=== PATIENT | female | born 1950 | race Two or more races ===

== ENCOUNTER 2018-12-19 16:44 | Emergency (ER) | payer MEDICARE, OTHER ==
[~2018-12-19] VITALS: Ht 147.3 cm; Wt 47.7 kg
[2018-12-19] MEDS ORDERED: HTN MED PO (17:16)
[2018-12-19] MEDS ORDERED: CHOL100018 PO (17:16)
[2018-12-19] MEDS ORDERED: TraMADol HCL 50 MG TABLET PO ONE (18:15)
[2018-12-19 19:50] VITALS: BP 144/82
== END 2018-12-19 20:09 | disposition home or self-care (01) ==
LOC: EMS 16:46
DX: S22.019A Unspecified fracture of first thoracic vertebra, initial encounter for closed fracture (principal); S12.200A Unspecified displaced fracture of third cervical vertebra, initial encounter for closed fracture; S12.300A Unspecified displaced fracture of fourth cervical vertebra, initial encounter for closed fracture; S12.400A Unspecified displaced fracture of fifth cervical vertebra, initial encounter for closed fracture; I10 Essential (primary) hypertension; Z86.11 Personal history of tuberculosis; V49.9XXA Car occupant (driver) (passenger) injured in unspecified traffic accident, initial encounter; Y93.89 Activity, other specified; Y92.89 Other specified places as the place of occurrence of the external cause; Y99.8 Other external cause status
CPT/HCPCS: 72125